=== PATIENT | female | born 1955 | race Two or more races ===

== ENCOUNTER 2024-11-07 09:10 | Emergency (ER) | payer MEDICARE, MEDICAID, SELFPAY ==
[2024-11-07 09:28] VITALS: BP 116/77; PULSE 98; RESP 17; TEMP 36.7; O2SAT 99; BMI 16.9
--- NOTE | 2024-11-07 09:37 | XR_ITS ---
Examination: Duplex scan of the upper extremity, unilateral left Date and time of exam: November 07, 2024 1001 hours INDICATIONS: Left arm and wrist redness swelling and pain beginning one week ago Technique: Duplex scan of the extremity veins using B-mode/grayscale imaging and Doppler spectral analysis and color flow Attention is directed to internal echogenicity, compression and augmentation involving these veins, color flow assessment, spectral analysis Findings: Major deep venous structures in the extremity demonstrate normal course and caliber. There is no evidence of deep vein thrombosis. Normal color flow and spectral analysis Positive for acute thrombus in the superficial cephalic vein Impression: Negative for DVT.. Positive for acute thrombus in the superficial left cephalic vein
--- NOTE | 2024-11-07 09:38 | XR_ITS ---
Examination: AP chest single view Technique one AP portable upright chest single view Exam date and time: November 07, 2024 1036 hours Comparison September 22, 2023 INDICATIONS: Left arm pain after falling today FINDINGS: Normal heart size Mild scarring at the lung bases No pneumothorax Clavicles ribs shoulder bones appear intact IMPRESSION: No pneumothorax pulmonary contusion or hemothorax
--- NOTE | 2024-11-07 09:38 | EKG_ITS ---
[facility] Test Date: 2024-11-07 Pat Name: JHONNY HENDERSON Department: Room: - Gender: Female Director Packaging: : 1955 Requested By: Gordy Arnold Order Number: [id number] Reading MD: Gordy Arnold Measurements Intervals [place] Rate: 84 P: 70 KS: 156 QRS: 65 QRSD: 98 T: 54 QT: 367 QTc: 436 Interpretive Statements SINUS RHYTHM Compared to ECG 09/17/2023 13:36:03 T-wave abnormality no longer present /store/S0/[id number]/ecg/[id number].pdf
--- NOTE | 2024-11-07 09:44 | EDNOTE_ITS ---
ED SOB =RME/HPI General Chief Complaint: Extremity Injury, Upper Stated Complaint: LEFT ARM PAIN SP FALL, SOB. Time Seen by Provider: 11/07/24 09:13 Arrival date/time: 11/07/24 09:10 RME / HPI RME / HPI Narrative: This section includes all my notes and documentations, including HPI, PE, and ED course.? Gordy Mcdonald MD HPI: 69 year old female here with multiple concerns. About a week ago, she had a mechanical fall. Landed on left outstretched hand. She reports continued pain in the left upper extremity. And she reports dyspnea. No CP. No cough. No fever or chills or body aches or malaise. No other complaints. ROS: All negative except as documented in HPI. Physical Exam: General:? Alert and oriented.? No acute distress when remaining still. Eyes:? Conjunctivae and lids clear.?? ENT:? No nasal congestion.? Neck:? Supple.?? Heart:? RRR.? Lungs:? No respiratory distress.? Good air movement.? No rhonchi, wheezing, rales.?? Abdomen:? Soft and nontender.? Back:? No CVA tenderness.?? Skin:? Warm and dry.?? Neuro:? Alert and oriented X 3. Left Arm: Tenderness noted, mainly in the left wrist area. Prednisone and DuoNeb given before diagnostic tests as a trial, no improvement noted. I reviewed all diagnostic test results. My interpretation of the EKG is sinus rhythm with nonspecific ST-T changes. My interpretation of the chest x-ray is no acute findings and left wrist x-rays is distal radial fracture My review of the chest CT report is no PE. My review of the left UE ultrasound report is no DVT. Blood tests unremarkable, except D-Dimer 1950. Covid/Influenza/RSV negative. IV Solumedrol and IV Benadryl given prior to chest CTA due to iodine allergy. At this point, diagnoses include?left wrist fracture and SOB with unclear etiology. Applied wrist splint and sling. Her wrist pain felt much better. Recommended more outpatient care. Based on my best medical judgment, made decision no further evaluation or treatment indicated at this time.? Patient understands and agrees to the disc harge instructions customized and printed, see below. Discharge instructions from Dr. Mcdonald: 1. After extensive evaluation, there is no life-threatening condition.? Such as heart attack or pulmonary embolism (blood clots in your lungs) or pneumothorax (collapsed lung). 2. You sustained left wrist fracture. Keep the splint clean and dry and intact until cleared by a doctor taking care of you. 3. Tylenol/ibuprofen as needed. 4. See Dr. Mercer (our orthopedic surgeon) on 11/11/2024 for recheck and further care of your left wrist fracture. [address] [place] [id number] Call the office and let them know you were seen in the ER and he was on-call, and they will give you an appointment. 5. See your primary care doctor on. Ask to review all test results and official radiology reports, to make sure you receive all necessary follow-ups and monitoring. To make sure there is no serious underlying heart condition, ask to help you get more tests for your heart that cannot be done here in the ER.? Such as Holter Monitor (cardiac monitoring at home from a day to even a month), heart stress test (on treadmill or with medication), echocardiogram (imaging of your heart structures), heart catherization (checking for blockages in your heart arteries), and a referral to see a [employer]. 6. Seek immediate medical care with worsening or with any concerns.?? Gordy Mcdonald MD Related Data Home Medications ?Medication ?Instructions ?Recorded ?Confirmed aspirin 81 mg chewable tablet 81 mg PO QDAY ##0 09/21/16 04/15/24 Calcium Carbonate * (CALTRATE *) 600 mg PO BID #0 tabs 11/29/17 04/15/24 prednisone 5 mg tablet 5 mg PO QAM #0 tabs 11/29/17 04/15/24 alendronate 70 mg tablet 1 tab PO QWEEK 05/25/22 04/15/24 tacrolimus 0.5 mg capsule, 1 cap PO BID 05/25/22 04/15/24 immediate-release latanoprost 0.005 % eye drops, 1 drp ophthalmic (eye) QPM 05/26/22 04/15/24 emulsion timolol maleate 0.5 % eye drops 1 drp ophthalmic (eye) BID 05/26/22 04/15/24 Previous Rx's ?Medication ?Instructions ?Recorded hydrocodone 5 mg-acetaminophen 325 1 tab PO Q8H PRN pain #10 tabs 04/09/24 mg tablet levofloxacin 500 mg tablet 500 mg PO QDAY #7 tabs 04/09/24 Allergies Allergy/AdvReac Type Severity Reaction Status Date / Time iodine Allergy Severe ITCHING Verified 09/22/24 15:23 codeine Allergy Unknown Verified 09/22/24 15:23 Course Quality Measures none Orders Category Date Time Status Bedside COVID-19 Antigen Test NOW Care 11/07/24 09:40 Completed Bedside Influenza A&B Antigen Test NOW Care 11/07/24 09:[address] Screening NOW Care 11/07/24 12:19 Completed EKG (ED ONLY) *Do not use* NOW Care 11/07/24 09:38 Completed Saline [Insert IV] NOW Care 11/07/24 09:36 Completed Splint / Immobilizer STAT Care 11/07/24 11:21 Completed Straight [In and Out Catheter] X1 Care 11/07/24 09:[address] angio chest Stat Exams 11/07/24 12:19 Completed EKG (ED Only) Stat Exams 11/07/24 09:38 Draft US venous doppler UE LT Stat Exams 11/07/24 09:37 Completed XR chest 1V portable Stat Exams 11/07/24 09:38 Completed XR hand LT 2V Stat Exams 11/07/24 09:45 Completed XR wrist comp LT min 3V Stat Exams 11/07/24 09:45 Completed BNP [B-Type Natriuretic Peptide] Stat Lab 11/07/24 10:47 Completed CBC Stat Lab 11/07/24 10:47 Completed CMP [Comprehensive Metabolic Panel] Stat Lab 11/07/24 10:47 Completed D-Dimer Stat Lab 11/07/24 10:47 Completed Magnesium Stat Lab 11/07/24 10:47 Completed PT [Prothrombin Time with INR] Stat Lab 11/07/24 10:47 Completed PTT [Partial Thromboplastin Time] Stat Lab 11/07/24 10:47 Completed RSV [Respiratory Syncytial Virus Ag] Stat Lab 11/07/24 11:20 Completed TSH [Thyroid Stimulating Hormone] Stat Lab 11/07/24 10:47 Completed Troponin I Stat Lab 11/07/24 10:47 Completed Albuterol/Ipratr Rt Dagmar [Duoneb Rt Dagmar] Med 11/07/24 09:36 Discontinued 3 ml INH X1 ONE DiphenhydrAMINE INJ [Benadryl Inj] Med 11/07/24 14:52 Discontinued 50 mg IVP X1 ONE MethylPREDNISolone.* [SoluMEDROL Inj] Med 11/07/24 09:36 Discontinued 125 mg IVP X1 ONE MethylPREDNISolone.* [SoluMEDROL Inj] Med 11/07/24 14:52 Discontinued 125 mg IVP X1 ONE predniSONE Med 11/07/24 11:17 Discontinued 40 mg PO X1 ONE Vital Signs Vital signs: Vital Signs Temperature 98.0 F 11/07/24 09:28 Pulse Rate 98 11/07/24 09:28 Respiratory Rate 17 11/07/24 09:28 Blood Pressure 116/77 11/07/24 09:28 Pulse Oximetry (%) 99 11/07/24 09:28 Oxygen Delivery Method Room Air 11/07/24 09:28 Shortness of Breath / Dyspnea Patient data External records reviewed:: [facility] previous records Clinical information provided by:: patient Social determinants that could affect healthcare access:: none Patient has the following chronic illnesses:: history of kidney transplant How is presenting disease/condition affected by chronic disease/condition?: uneffected by Evaluation data The following diagnostics were reviewed and interpreted by me:: lab results, radiology exam(s) and EKG tracing(s) (My interpretation of the EKG: NSR (84 bpm) with no ST-T changes. Gordy Mcdonald MD) Lab and/or radiology exams considered but not ordered:: none Interpretation Summary: left wrist fracture Medications / Prescriptions Medications or Prescriptions considered but not ordered:: none Medication administrations:: Medication Administration History Discontinued Medications Albuterol/Ipratropium (Albuterol/Ipratropium (Duoneb) Rt Dagmar 3 Ml Nebu) 3 ml INH X1 ONE Stop: 11/07/24 09:37 Last Admin: 11/07/24 11:37 Dose: Not Given Documented By: LO Non-Admin Reason: Patient Refused Diphenhydramine HCl (Diphenhydramine Inj 50 Mg/Ml Vial) 50 mg IVP X1 ONE Stop: 11/07/24 14:53 Last Admin: 11/07/24 15:22 Dose: 50 mg Documented By: TM Methylprednisolone Sodium Succinate (Methylprednisolone Sod Succ 62.5 Mg/Ml 2ml Vial) 125 mg IVP X1 ONE Stop: 11/07/24 09:37 Last Admin: 11/07/24 11:19 Dose: Not Given Documented By: TM Non-Admin Reason: Patient Refused Methylprednisolone Sodium Succinate (Methylprednisolone Sod Succ 62.5 Mg/Ml 2ml Vial) 125 mg IVP X1 ONE Stop: 11/07/24 14:53 Last Admin: 11/07/24 15:22 Dose: 125 mg Documented By: TM Prednisone (Prednisone 20 Mg Tablet) 40 mg PO X1 ONE Stop: 11/07/24 11:18 Last Admin: 11/07/24 11:30 Dose: 40 mg Documented By: TM see chart Consultations Consultation(s) initiated? (list below): No Diagnosis Shortness of Breath Differential Diagnosis: acute exacerbation of chronic obstructive airways disease, congestive heart failure, community acquired pneumonia, asthma with exacerbation, pulmonary embolism and other (wrist fracture) Most likely diagnosis given after review of the tests above:: left wrist fracture Admission Indicated Admission indicated?: not indicated Explain why admission is indicated or not indicated:: admission criteria not met Admission Request Was there a request for admission?: No Disposition Plan Disposition Plan: Discharge Discharge Attestation Discharge Attestation: The patient and all family members were given an opportunity to ask questions and understood the discharge instructions. Discharge instructions specifically effects, indications for sooner follow up or return to the emergency department, and the expected course of current diagnosis. Patient condition: Stable Discharge Plan Plan Patient Disposition: HOME (Self Care) Prescriptions/Referrals Prescriptions/Med Rec: No Action aspirin 81 MG tablet,chewable 81 mg PO QDAY Qty: 0 prednisone 5 MG tablet 5 mg PO QAM Qty: 0 Calcium Carbonate * (CALTRATE *) 600 MG tablet 600 mg PO BID Qty: 0 tacrolimus 0.5 mg capsule 1 cap PO BID Patient Comments: TAKE 2 CAPSULES (1 MG TOTAL) BY MOUTH 2 TIMES DAILY alendronate 70 mg tablet 1 tab PO QWEEK timolol maleate 0.5 % Drops 1 drp OPHTHALMIC (EYE) BID latanoprost 0.005 % Drops, Emulsion 1 drp OPHTHALMIC (EYE) QPM hydrocodone-acetaminophen 5-325 mg tablet 1 tab PO Q8H MDD 3 tabs per day PRN (Reason: pain) Qty: 10 0RF levofloxacin 500 mg tablet 500 mg PO QDAY Qty: 7 0RF Referrals: Manuel (PCP),MD Lonny [Primary Care Provider] - In 1 week Problem List Clinical Impression: Fracture of left wrist, Shortness of breath Patient/Caregiver Discharge Instructions Discharge Activity: activity as tolerated Education Materials: ED Shortness of Breath (Dyspnea), ED Fracture, Wrist, General Additional Instructions: Discharge instructions from Dr. Mcdonald: 1. After extensive evaluation, there is no life-threatening condition.? Such as heart attack or pulmonary embolism (blood clots in your lungs) or pneumothorax (collapsed lung). 2. You sustained left wrist fracture. Keep the splint clean and dry and intact until cleared by a doctor taking care of you. 3. Tylenol/ibuprofen as needed. 4. See Dr. Mercer (our orthopedic surgeon) on 11/11/2024 for recheck and further care of your left wrist fracture. [address] [place] [address] Call the office and let them know you were seen in the ER and he was on-call, and they will give you an appointment. 5. See your primary care doctor on. Ask to review all test results and official radiology reports, to make sure you receive all necessary follow-ups and monitoring. To make sure there is no serious underlying heart condition, ask to help you get more tests for your heart that cannot be done here in the ER.? Such as Holter Monitor (cardiac monitoring at home from a day to even a month), heart stress test (on treadmill or with medication), echocardiogram (imaging of your heart structures), heart catherization (checking for blockages in your heart arteries), and a referral to see a [employer]. 6. Seek immediate medical care with worsening or with any concerns.?? Instrucciones de luli del Dr. Mcdonald: 1. Despu?s de madhu evaluaci?n exhaustiva, no hay ninguna afecci?n que ponga en peligro la marian, mitra un ataque card?aco o madhu embolia pulmonar (co?gulos de catrachito en los pulmones) o un neumot?rax (colapso pulmonar). 2. Sufri? madhu fractura de mu?eca izquierda. Mantenga la f?stalin limpia, seca e intacta hasta que un m?dico que lo atienda lo autorice. 3. Tylenol/ibuprofeno seg?n sea necesario. 4. Visite al Dr. Mercer (nuestro cirujano ortop?dico) el 11/11/2024 para volver a controlar y recibir m?s atenci?n por downing fractura de mu?eca izquierda. [address] [place] [address] Llame al consultorio e inf?rmeles que lo atendieron en la abner de emergencias y que ?l estaba de sandra, y le marcos?n madhu albertina. 5. Visite a downing m?dico de atenci?n primaria el . Pida que le revisen todos los resultados de las pruebas y los informes oficiales de radiolog?a para asegurarse de que recibe todos los seguimientos y la monitorizaci?n necesarios. Para asegurarse de que no haya ninguna afecci?n card?yoselin subyacente grave, pida ayuda para que le char m?s pruebas para el coraz?n que no se pueden hacer aqu? en la abner de emergencias, mitra el monitor Holter (monitoreo card?aco en el hogar desde un d?a hasta incluso un mes), la prueba de esfuerzo card?aco (en cinta o con medicaci?n), el ecocardiograma (im?genes de las estructuras del coraz?n), el cateterismo card?aco (para comprobar si hay obstrucciones en las arterias del coraz?n) y madhu derivaci?n para levi a un cardi?logo. 6. Busque atenci?n m?dica inmediata si downing estado empeora o tiene alguna inquietud. Print Language: Lebanese Stand Alone Forms: Brittany Award Info., Patient Portal Info Letter
--- NOTE | 2024-11-07 09:45 | XR_ITS ---
Examination: Hand, left 3 views Technique: Hand AP, oblique, lateral 3 views Date and time of exam: November 07, 2024 1035 hours INDICATIONS: Patient fell today with injury to the hand, hand pain FINDINGS: Acute nondisplaced fracture distal radial metaphysis Carpal bones bones of the hand appear intact IMPRESSION: Acute nondisplaced fracture distal radial metaphysis
--- NOTE | 2024-11-07 09:45 | XR_ITS ---
Examination: Wrist, left 3 views Technique: Wrist AP, oblique, lateral 3 views Date and time of exam: November 07, 2024 1035 hours INDICATIONS: Patient fell today with injury to the wrist, wrist pain. FINDINGS: Acute nondisplaced fracture distal radial metaphysis Prominent osteopenia No dislocation IMPRESSION: Acute nondisplaced fracture distal radial metaphysis
[2024-11-07 11:00] LABS: Basophils % (Auto) 1 % (0-2.5); Eosinophils # (Auto) 0.1 Thou/mm3 (0.0-0.5); Eosinophils % (Auto) 3 % (0-10); Hematocrit 36.9 % (36.0-46.0); Hemoglobin 12.3 g/dL (12.0-16.0); Immature Granulocytes % (Auto) 0 % (0-0); Immature Granulocytes Auto 0.01 Thou/mm3 (0.00-0.00); Lymphocytes # (Auto) 0.9 Thou/mm3 (1.0-4.8); Lymphocytes % (Auto) 16 % (10-50); Mean Corpuscular HGB Conc 33.3 g/dl (31.0-37.0); Mean Corpuscular Hemoglobin 30.4 pg (25.0-35.0); Mean Corpuscular Volume 91 fL (80-100); Monocytes # (Auto) 0.5 Thou/mm3 (0.0-0.8); Monocytes % (Auto) 9 % (0-12); Neutrophils # (Auto) 3.9 Thou/mm3 (1.8-7.7); Neutrophils % (Auto) 72 % (37-80); Nucleated Red Blood Cell % 0 /100 WBC (0); Platelet Count 207 Thou/mm3 (140-440); RDW Standard Deviation 45.4 fL (36.4-46.3); Red Blood Count 4.04 Miln/mm3 (4.00-5.20); White Blood Count 5.4 Thou/mm3 (3.6-11.0)
[2024-11-07 11:25] LABS: B-Type Natriuretic Peptide 63 pg/mL (0-100)
[2024-11-07 11:29] LABS: Alanine Aminotransferase 14 U/L (10-49); Albumin, Serum 4.2 gm/dL (3.4-4.8); Albumin/Globulin Ratio 1.8 (1.2-2.2); Alkaline Phosphatase 55 U/L (46-116); Anion Gap 4 (7-16); Aspartate Amino Transferase 18 U/L (0-34); BUN/Creatinine Ratio 20 Ratio (12-20); Bilirubin,Total 0.6 mg/dL (0.3-1.2); Blood Urea Nitrogen 16 mg/dL (9-23); Calcium 9.2 mg/dL (8.3-10.6); Calcium (Corrected) 9.2 mg/dL (8.5-10.1); Carbon Dioxide 28.6 mMol/L (20.0-31.0); Chloride 103 mMol/L (98-107); Creatinine (Component) 0.8 mg/dL (0.6-1.3); Estimated Creatinine Clearance 42.6 mL/min (>60); Globulin 2.4 gm/dL (2.3-3.5); Glucose 90 mg/dL (74-106); Magnesium 1.8 mg/dL (1.6-2.6); Osmolality,Calculated 273 (275-295); Potassium 3.4 mMol/L (3.4-5.1); Sodium 136 mMol/L (136-145); Thyroid Stimulating Hormone 3.07 uIU/mL (0.55-4.78); Total Protein 6.6 gm/dL (5.7-8.2); Troponin I < 0.020 ng/mL (0.0-0.045); eGFR > 60 See Note
[2024-11-07] MEDS: predniSONE 20 MG TABLET 40 MG PO (11:30)
[2024-11-07 11:58] LABS: D-Dimer 1950 ng/mL (<600)
[2024-11-07 12:00] LABS: Respiratory Syncytial Virus Ag Negative (Negative)
--- NOTE | 2024-11-07 12:19 | XR_ITS ---
Examination: CTA chest with intravenous contrast 2-D reconstructions 3-D reconstructions, vascular Date and time of exam: November 07, 2024 1543 hours INDICATIONS: Shortness of breath chest pain today with elevated d-dimer on laboratory examination CTDI: vol (mGy) 8.62 DLP: (mGycm) 190 Technique: Multiple axial sections of the thorax have been obtained. 3 mm slice thickness, from below the hemidiaphragms to above the apices of the lungs. Mediastinal and lung density settings have been obtained. 2-D sagittal and coronal reconstructions. 3-D angiographic renderings, 3-D volume renderings, 3D post processing, vascular maximum intensity projections obtained. Contrast administered is 100 cc Isovue-370. Low dose protocols were performed. One or more of the following dose reduction techniques were used; automated exposure control, adjustment of the mA and/or KV according to patient size, use of iterative reconstruction technique. Findings: 4 mm left thyroid nodule Thoracic aortic calcification AP dimension ascending thoracic aorta 33 mm Pulmonary artery segments are not enlarged No pulmonary artery emboli Right hilar mild lymphadenopathy Multiple subcentimeter nodules left apex image 2 6 mm pleural-based pulmonary nodule right upper lobe image 62 12 mm pulmonary nodule right upper lobe image 138 5 mm pulmonary nodule right midlung image 150 4 mm pulmonary nodule lingular segment image 198 3 mm pulmonary nodule right lower lobe liver 8mm pulmonary nodule right lower lobe image 2:15 COPD with areas of airspace destruction No lobar pneumonia Multiple low-density liver lesions most consistent with cysts Polycystic right kidney Left kidney is not visualized Abdominal aorta is not enlarged IMPRESSION: Negative for pulmonary artery emboli Mild right hilar lymphadenopathy COPD Multiple noncalcified pulmonary nodules as above, with this study as baseline recommend continued 6 month follow-up CT chest without contrast Polycystic liver and right kidney disease
[2024-11-07 13:13] VITALS: BP 141/76; PULSE 78; RESP 16; O2SAT 100
[2024-11-07 15:15] VITALS: BP 112/70; PULSE 81; RESP 15; TEMP 36.9; O2SAT 100
[2024-11-07] MEDS: MethylPREDNISolone SOD SUCC 62.5 MG/ML 2ML VIAL 125 MG IVP (15:22)
[2024-11-07] MEDS: DiphenhydrAMINE INJ 50 MG/ML VIAL IVP (15:22)
== END 2024-11-07 18:41 | disposition home or self-care (01) ==
PROVIDERS: Emergency Provider Emergency Medicine; PCP Family Medicine
DX: S52.502A Unspecified fracture of the lower end of left radius, initial encounter for closed fracture (principal); S69.92XA Unspecified injury of left wrist, hand and finger(s), initial encounter; M79.602 Pain in left arm; R06.02 Shortness of breath; R07.9 Chest pain, unspecified; W19.XXXA Unspecified fall, initial encounter
CPT/HCPCS: 36415; 36600; 71045; 71275; 73110; 73120; 73130; 80053; 81001; 82803; 83735; 83880; 84443; 84484; 85025; 85379; 85610; 85730; 87400; 87634; 87811; 93005; 93971; 96374; 99285; A4649; A9270; J1200; J2919; J7512; Q9967

== ENCOUNTER → 2024-11-18 | Outpatient (CLI) | payer MEDICARE, MEDICAID, SELFPAY ==
--- NOTE | 2024-11-18 15:00 | XR_ITS ---
Examination: Wrist, left 2 views Technique: Wrist AP, lateral 2 views Date and time of exam: November 18, 2024 1508 hrs. Indications: Injury to the wrist November 07, 2024, fracture distal radius Findings: Healing fracture distal radial metaphysis with stable and satisfactory alignment Tiny fracture ulnar styloid tip Impression: Partial healing fracture distal radial metaphysis with stable and satisfactory alignment
== END | disposition home or self-care (01) ==
PROVIDERS: PCP Orthopaedic Surgery; Referring Provider Orthopaedic Surgery; Visit Provider Orthopaedic Surgery
DX: S52.92XA Unspecified fracture of left forearm, initial encounter for closed fracture (principal); X58.XXXA Exposure to other specified factors, initial encounter
CPT/HCPCS: 73100

== ENCOUNTER → 2025-02-24 | Outpatient (CLI) | payer MEDICARE, MEDICAID, SELFPAY ==
--- NOTE | 2025-02-24 11:50 | XR_ITS ---
Examination: Shoulder,right, 3 views Technique: Shoulder AP internal rotation, AP external rotation, Y view shoulder, 3 views Exam date and time :February 24, 2025 1317 hours INDICATIONS: Right shoulder pain beginning one month ago. FINDINGS: Moderate osteopenia. No fracture or dislocation. Moderate narrowing glenohumeral joint IMPRESSION: Moderate narrowing glenohumeral joint
== END | disposition home or self-care (01) ==
LOC: CDIM 11:46
PROVIDERS: PCP Family Medicine; Referring Provider Family Medicine; Visit Provider Family Medicine
DX: M25.811 Other specified joint disorders, right shoulder (principal)
CPT/HCPCS: 73030

== ENCOUNTER → 2025-04-01 | Outpatient (CLI) | payer MEDICARE, MEDICAID, SELFPAY ==
--- NOTE | 2025-04-01 12:50 | XR_ITS ---
Examination: Screening digital mammography, bilateral Computer aided detection 3-D breast Tomosynthesis, bilateral Date and time of exam: April 01, 2020 0558 hours Compared to mammograms dating to July 08, 2019 Indication: Screening Technique: Nonmagnified MLO, CC views of the breasts to been obtained, reconstructed from 3-D Tomosynthesis images. R2 computer aided detection program utilized for evaluation of suspicious masses and/or abnormal calcifications. 3-D Tomosynthesis images obtained. Findings: Scattered areas of fibroglandular density. Benign calcifications. No interval suspicious masses Impression: BI-RADS category II: Benign Findings. Recommend 1 year follow-up mammogram.
== END | disposition home or self-care (01) ==
LOC: CDIM 11:35
PROVIDERS: Referring Provider Family Medicine; Visit Provider Family Medicine
DX: Z12.31 Encounter for screening mammogram for malignant neoplasm of breast (principal); R92.323 Mammographic fibroglandular density, bilateral breasts; R92.1 Mammographic calcification found on diagnostic imaging of breast
CPT/HCPCS: 77063; 77067

== ENCOUNTER → 2025-04-08 | Outpatient (CLI) | payer MEDICARE, MEDICAID, SELFPAY ==
--- NOTE | 2025-04-08 14:30 | XR_ITS ---
Examination: Bone densitometry Date and time of exam:April 08, 2025 1632 hours INDICATIONS: Menopause age 44, personal history osteoporosis Technique: Lumbar spine and hip total bone mineralization values of an calculated. Peak reference and age match control results have been displayed. Findings: Lumbar spine total bone mineralization is0.628 gm/cm2. This is 3.8 standard deviations below peak reference. This is 1.6 standard deviations below age-matched controls. Hip total bone mineralization is 0.666 gm/cm2 This is 2.2 standard deviations below peak reference. This is 0.7 standard deviations below age-matched controls Impression: There is osteoporosis based on lumbar spine measurements. There is osteoporosis based on hip measurements Lumbar mineralization is decreased 0.2% compared with October 14, 2019 Hip mineralization is increased 2.1% compared with October 14, 2019
== END | disposition home or self-care (01) ==
LOC: CDIM 13:45
PROVIDERS: Referring Provider Family Medicine; Visit Provider Family Medicine
DX: M81.0 Age-related osteoporosis without current pathological fracture (principal)
CPT/HCPCS: 77080

== ENCOUNTER 2025-06-04 10:05 | Day surgery (SDC) | payer MEDICARE, MEDICAID, SELFPAY ==
[2025-06-04] VITALS (9 sets, daily range): BP systolic 103–146; BP diastolic 59–83; PULSE 62–82; RESP 10–18; TEMP 36.3–36.9; O2SAT 95–100; BMI 17.7
[2025-06-04] MEDS: SODIUM CHLORIDE 0.9% 500 ML 500 ML 20 ML IV (12:01)
[2025-06-04] MEDS: fentaNYL CIT INJ 50 mCg/ML AMP 2ML (ASD USE ONLY) IVP (12:06)
[2025-06-04] MEDS: MIDAZOLAM INJ 1 MG/ML VIAL 2 ML (ASD USE ONLY) 2 MG IVP (12:11)
--- NOTE | 2025-06-04 14:28 | SUR.PHASEII ---
Patient was very sleepy and difficult to wake after procedure. Finally awake enough to drink and much more alert after about an hour. Discharge was delayed as family was difficult to reach. Patient remained stable while waiting for family. Up in wheelchair and tolerating PO.
== END 2025-06-04 14:15 | disposition home or self-care (01) ==
PROVIDERS: PCP Family Medicine; Referring Provider Specialist; Visit Provider Specialist
PROC: 0DBE8ZX Excision of Large Intestine, Via Natural or Artificial Opening Endoscopic, Diagnostic (ICD-10-PCS; CPT 45380; principal; 2025-06-04 11:15)
DX: Z12.11 Encounter for screening for malignant neoplasm of colon (principal); K64.9 Unspecified hemorrhoids; K57.30 Diverticulosis of large intestine without perforation or abscess without bleeding; L30.8 Other specified dermatitis; Z88.6 Allergy status to analgesic agent; Z94.0 Kidney transplant status
CPT/HCPCS: G0121; J1200; J2250; J3010; J7999

== ENCOUNTER → 2025-06-16 | Outpatient (CLI) | payer MEDICARE, MEDICAID, SELFPAY | END | disposition home or self-care (01) | PROVIDERS: Visit Provider Student in an Organized Health Care Education/Training Program | DX: L53.8 Other specified erythematous conditions (principal); R21 Rash and other nonspecific skin eruption; L98.499 Non-pressure chronic ulcer of skin of other sites with unspecified severity; N18.6 End stage renal disease; I67.1 Cerebral aneurysm, nonruptured; Z94.0 Kidney transplant status; E11.9 Type 2 diabetes mellitus without complications; R35.89 Other polyuria | CPT/HCPCS: 99214; G0463 ==

== ENCOUNTER → 2025-07-07 | Outpatient (CLI) | payer MEDICARE, MEDICAID, SELFPAY | END | disposition home or self-care (01) | LOC: SWHD 13:28 | PROVIDERS: PCP Family Medicine; Referring Provider Family Medicine; Visit Provider Student in an Organized Health Care Education/Training Program | DX: L98.499 Non-pressure chronic ulcer of skin of other sites with unspecified severity (principal); S31.502A Unspecified open wound of unspecified external genital organs, female, initial encounter; X58.XXXA Exposure to other specified factors, initial encounter; L53.8 Other specified erythematous conditions; N18.6 End stage renal disease; R21 Rash and other nonspecific skin eruption; I67.1 Cerebral aneurysm, nonruptured; Z94.0 Kidney transplant status; E11.9 Type 2 diabetes mellitus without complications; R35.89 Other polyuria | CPT/HCPCS: 99213; G0463 ==

== ENCOUNTER → 2025-08-04 | Outpatient (BNVA) | payer MEDICARE, MEDICAID, SELFPAY | END | disposition home or self-care (01) | PROVIDERS: PCP Family Medicine; Referring Provider Family Medicine; Visit Provider Urology | DX: G89.4 Chronic pain syndrome (principal); R10.2 Pelvic and perineal pain; R33.9 Retention of urine, unspecified; R35.1 Nocturia; R35.0 Frequency of micturition; Z94.0 Kidney transplant status; E78.00 Pure hypercholesterolemia, unspecified | CPT/HCPCS: 81003; 99212; G0463 ==

== ENCOUNTER → 2025-08-11 | Outpatient (CLI) | payer MEDICARE, MEDICAID, SELFPAY | END | disposition home or self-care (01) | LOC: SWHD 12:55 | PROVIDERS: PCP Family Medicine; Referring Provider Family Medicine; Visit Provider Surgery | DX: L98.499 Non-pressure chronic ulcer of skin of other sites with unspecified severity (principal); S31.502A Unspecified open wound of unspecified external genital organs, female, initial encounter; X58.XXXA Exposure to other specified factors, initial encounter; I67.1 Cerebral aneurysm, nonruptured; Z94.0 Kidney transplant status; E11.9 Type 2 diabetes mellitus without complications; R35.89 Other polyuria; L53.8 Other specified erythematous conditions | CPT/HCPCS: 99212; A9270; G0463 ==

== ENCOUNTER → 2025-11-03 | Outpatient (BNVA) | payer MEDICARE, MEDICAID, SELFPAY | END | disposition home or self-care (01) | PROVIDERS: PCP Family Medicine; Referring Provider Family Medicine; Visit Provider Urology | DX: N35.92 Unspecified urethral stricture, female (principal) | CPT/HCPCS: 52281; 81003; 96372; A4217; A4649; C1894; J1580; A9270 ==